=== PATIENT | male | born 1995 | race Caucasian/White ===

== ENCOUNTER 2018-09-26 10:13 | Emergency (ER) | payer OTHER ==
[~2018-09-26] VITALS: Ht 180.3 cm; Wt 84.5 kg
[2018-09-26 10:15] VITALS: BP 129/75
--- NOTE | 2018-09-26 10:43 | REP ---
Clinical: Trauma with pain directed to the first digit. Technique: AP, lateral, bilateral oblique views right hand. Findings: There appears to be a very small corner fracture along the medial base of the proximal phalanx first digit. Correlation with mechanism of injury and point of tenderness is recommended. Remainder examination appears relatively normal. Impression: Very small acute corner fracture at the base of the first digit proximal phalanx. Electronically Signed by Ramsey Senior MD 09/26/2018 10:34 A
== END 2018-09-26 10:57 | disposition home or self-care (01) ==
LOC: M ED 10:13
DX: S62.511A Displaced fracture of proximal phalanx of right thumb, initial encounter for closed fracture (principal); W23.1XXA Caught, crushed, jammed, or pinched between stationary objects, initial encounter; Y92.099 Unspecified place in other non-institutional residence as the place of occurrence of the external cause; Y93.89 Activity, other specified; Y99.1 Military activity

== ENCOUNTER 2019-04-12 14:55 | Emergency (ER) | payer OTHER ==
[2019-04-12 17:10] LABS: BASO % 0.2 % (0.0-1.0); EOS # 0.2 10^3/uL (0.0-0.50); EOS % 0.9 % (0.0-3.0); HEMATOCRIT 46.3 % (42.0-52.0); HEMOGLOBIN 16.3 g/dl (13.5-17.5); LYMPH # 1.9 10^3/uL (1.5-6.5); LYMPH % 11.2 % (24.0-44.0); MEAN CORPUSCULAR HEMOGLOBIN 28.8 pg (27.0-33.0); MEAN CORPUSCULAR HGB CONC 35.2 g/dl (32.0-36.5); MEAN CORPUSCULAR VOLUME 81.8 fl (80.0-96.0); MONO # 1.1 10^3/uL (0.0-0.8); MONO % 6.4 % (0.0-5.0); NEUTROPHILS # 13.8 10^3/uL (1.8-7.7); NEUTROPHILS % 80.9 % (36.0-66.0); PLATELET COUNT, AUTOMATED 226 10^3/uL (150-450); RED BLOOD COUNT 5.66 10^6/uL (4.30-6.10)
[2019-04-12 17:39] LABS: ALBUMIN 4.8 GM/DL (3.2-5.2); ALT/SGPT 31 U/L (12-78); BILIRUBIN,DIRECT 0.3 MG/DL (0.0-0.2); BLOOD UREA NITROGEN 11 MG/DL (7-18); C REACTIVE PROTEIN QUANTITATIV 6.11 MG/DL (0.00-0.30); CALCIUM LEVEL 9.3 MG/DL (8.5-10.1); CARBON DIOXIDE LEVEL 29 MEQ/L (21-32); CHLORIDE LEVEL 100 MEQ/L (98-107); CK-MB VALUE MASS < 1.0 NG/ML (<3.6); CPK CREATINE PHOSPHOKINASE 123 U/L (39-308); CREATININE FOR GFR 1.05 MG/DL (0.70-1.30); GLOMERULAR FILTRATION RATE > 60.0 (>60); GLUCOSE, FASTING 91 MG/DL (70-100); LIPASE 101 U/L (73-393); MB/CK RELATIVE INDEX 0.81 (< OR =4); NT-PRO BNP 13 PG/ML (<125); POTASSIUM SERUM 3.7 MEQ/L (3.5-5.1); SODIUM LEVEL 137 MEQ/L (136-145); TOTAL PROTEIN 8.2 GM/DL (6.4-8.2); TROPONIN I < 0.02 NG/ML (< 0.10)
[2019-04-12] MEDS ORDERED: PRED20TA PO (18:03)
[2019-04-12] MEDS ORDERED: ZITHTAB PO (18:03)
[2019-04-12 18:04] LABS: ERYTHROCYTE SEDIMENTATION RATE 2 mm/hr (0-15)
--- NOTE | 2019-04-12 18:05 | REP ---
CHEST, TWO VIEWS: There is no comparison. Two views of the chest are performed. Prominent interstitium in the lung bases suggests mild interstitial edema or infiltrate or possible reactive airway disease. No consolidation is seen. Heart is normal in size and the mediastinal silhouette is unremarkable. The visualized osseous structures are intact. Electronically Signed by Jag Mcclendon MD 04/13/2019 11:10 A
[2019-04-12] MEDS ORDERED: AZITHROMYCIN 250 MG TAB PO ONE (18:15)
[2019-04-12] MEDS ORDERED: predniSONE 20 MG TAB PO ONE (18:15)
[2019-04-12 18:17] VITALS: BP 130/82
--- NOTE | 2019-04-14 03:28 | ECGEPIP ---
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
== END 2019-04-12 18:19 | disposition home or self-care (01) ==
LOC: EDBD 14:55 → M ED 14:55
DX: J18.9 Pneumonia, unspecified organism (principal); I45.19 Other right bundle-branch block; F17.210 Nicotine dependence, cigarettes, uncomplicated